=== PATIENT | female | born 1985 | race Caucasian/White ===

== ENCOUNTER 2017-06-27 14:31 | Outpatient (CLI) | payer OTHER ==
--- NOTE | 2017-06-27 15:04 | RAD ---
LEFT FOOT 3 VIEWS: Date: 06/27/17 HISTORY: Injury, left foot pain. FINDINGS/IMPRESSION: No acute fracture or dislocation is identified. There are plantar and posterior calcaneal spurs. POS: [facility]
== END 2017-06-27 14:32 | disposition home or self-care (01) ==
LOC: MADRAD 14:31
PROVIDERS: ATTEND Family Medicine
DX: M79.672 Pain in left foot (principal); M77.32 Calcaneal spur, left foot

== ENCOUNTER 2018-06-17 09:13 | Emergency (ER) | payer OTHER ==
[2018-06-17] MEDS ORDERED: Ibuprofen 800 MG TAB ONE (09:54)
--- NOTE | 2018-06-17 10:03 | RAD ---
RIGHT HAND THREE VIEWS: History: Fall with hand pain. FINDINGS: There are no signs of fracture or dislocation. IMPRESSION: Negative right hand. POS: [facility]
--- NOTE | 2018-06-17 10:03 | RAD ---
FOUR VIEWS RIGHT WRIST: Comparison: None. History: Right wrist pain after fall. FINDINGS: Four views of the right wrist shows no evidence of acute fracture or dislocation. Mild soft tissue sw elling is seen. No degenerative changes are present. IMPRESSION: Unremarkable exam. POS: [facility]
== END 2018-06-17 10:19 | disposition home or self-care (01) ==
LOC: MADERS 09:13
DX: S63.501A Unspecified sprain of right wrist, initial encounter (principal); F41.9 Anxiety disorder, unspecified; W19.XXXA Unspecified fall, initial encounter

== ENCOUNTER 2018-09-05 07:47 | Emergency (ER) | payer OTHER ==
[2018-09-05] MEDS ORDERED: Morphine 10 MG/ML VIAL ONE (08:26)
--- NOTE | 2018-09-05 08:28 | RAD ---
EXAM: Chest Two Views 09/05/2018 8:25 AM HISTORY: Fall with left-sided rib pain COMPARISON: None. FINDINGS: Heart: Normal in size and contour. Pulmonary vessels: Normal. Costophrenic angles: Clear. Lungs: No confluent pneumonia, overt edema, pleural effusion, or other acute process. Pneumothorax: None. Osseous structures:Intact. Additional findings: None. IMPRESSION: No significant acute intrathoracic disease. If there is concern for left-sided rib fracture, left rib radiographic series is recommended.
== END 2018-09-05 08:42 | disposition home or self-care (01) ==
LOC: MADERS 07:47
DX: R07.81 Pleurodynia (principal); G44.209 Tension-type headache, unspecified, not intractable; I10 Essential (primary) hypertension; F41.9 Anxiety disorder, unspecified
CPT/HCPCS: 71046; 96372; J2270

== ENCOUNTER 2019-06-16 08:24 | Emergency (ER) | payer OTHER | END 2019-06-16 09:00 | disposition home or self-care (01) | LOC: MADERS 08:24 | DX: J20.9 Acute bronchitis, unspecified (principal); I10 Essential (primary) hypertension; F41.9 Anxiety disorder, unspecified | CPT/HCPCS: 99283 ==

== ENCOUNTER 2020-02-23 18:53 | Emergency (ER) | payer OTHER ==
--- NOTE | 2020-02-23 19:44 | RAD ---
LEFT FOOT THREE VIEWS: History: Dropped a frozen bottle of water on top of foot two days ago. Persistent pain. FINDINGS: Calcaneal spurs are present. There are no signs of fracture or dislocation. IMPRESSION: No evidence of fracture. POS: OFF
== END 2020-02-23 19:54 | disposition home or self-care (01) ==
LOC: MADERS 18:53
DX: S90.32XA Contusion of left foot, initial encounter (principal); I10 Essential (primary) hypertension; F41.9 Anxiety disorder, unspecified; W20.8XXA Other cause of strike by thrown, projected or falling object, initial encounter

== ENCOUNTER 2020-07-05 19:48 | Emergency (ER) | payer OTHER ==
[2020-07-06 15:53] LABS: SARS-CoV-2 PCR by NAA Not Detected (NotDetected)
== END 2020-07-05 20:37 | disposition home or self-care (01) ==
LOC: MADERS 19:48
DX: R50.9 Fever, unspecified (principal); R05 Cough; R00.0 Tachycardia, unspecified; Z20.822 Contact with and (suspected) exposure to COVID-19
CPT/HCPCS: 87635; 99283; U0003; U0005

== ENCOUNTER 2020-12-12 18:32 | Emergency (ER) | payer OTHER ==
[2020-12-12] MEDS ORDERED: Boostrix 0.5 ML (Tdap) VIAL ONE (18:43)
== END 2020-12-12 19:00 | disposition home or self-care (01) ==
LOC: MADERS 18:32
DX: S61.411A Laceration without foreign body of right hand, initial encounter (principal); W45.8XXA Other foreign body or object entering through skin, initial encounter
CPT/HCPCS: 90471; 90715

== ENCOUNTER 2021-09-30 16:05 | Emergency (ER) | payer OTHER | END 2021-09-30 16:42 | disposition home or self-care (01) | LOC: MADERS 16:05 | DX: H61.22 Impacted cerumen, left ear (principal) | CPT/HCPCS: 99282 ==

== ENCOUNTER 2022-06-07 18:52 | Emergency (ER) | payer OTHER ==
[2022-06-07] MEDS ORDERED: Ibuprofen 800 MG TAB ONE (19:43)
[2022-06-07 19:44] LABS: Pregnancy Test - Urine (BHCG) Negative (Negative); Pregu Control Background? CLEAR/WHITE (CLR/WHITE); Pregu Control Bar Appear? YES (CONTROL BAR)
== END 2022-06-07 20:56 | disposition home or self-care (01) ==
LOC: MADERS 18:52
DX: S93.602A Unspecified sprain of left foot, initial encounter (principal); I10 Essential (primary) hypertension; W01.0XXA Fall on same level from slipping, tripping and stumbling without subsequent striking against object, initial encounter
CPT/HCPCS: 81025

== ENCOUNTER 2022-12-09 17:07 | Emergency (ER) | payer OTHER | END 2022-12-09 19:08 | disposition home or self-care (01) | LOC: MADERS 17:07 | DX: S50.01XA Contusion of right elbow, initial encounter (principal); I10 Essential (primary) hypertension; E66.9 Obesity, unspecified; W01.0XXA Fall on same level from slipping, tripping and stumbling without subsequent striking against object, initial encounter ==

== ENCOUNTER 2023-04-08 14:54 | Emergency (ER) | payer OTHER, SELFPAY | END 2023-04-08 15:44 | disposition home or self-care (01) | LOC: MADERS 14:54 | DX: H60.501 Unspecified acute noninfective otitis externa, right ear (principal); H73.91 Unspecified disorder of tympanic membrane, right ear; I10 Essential (primary) hypertension; Z79.899 Other long term (current) drug therapy | CPT/HCPCS: 99282 ==

== ENCOUNTER 2023-08-09 08:18 | Emergency (ER) | payer SELFPAY ==
[2023-08-09 09:00] LABS: Bilirubin Negative (Negative); Blood, Urine Negative (Negative); Clarity Clear (Clear); Glucose, Urine (Dipstick) Negative (Negative); Ketone, Urine Negative (Negative); Leukocyte Negative (Negative); Nitrite Negative (Negative); Protein, Urine (Dipstick) Negative (Neg-Trace); Specific Gravity, Urine 1.015 (1.005-1.030); Urobilinogen 0.2 mg/dL (Less than 2)
[2023-08-09 09:03] LABS: Pregnancy Test - Urine (BHCG) Negative (Negative); Pregu Control Background? CLEAR/WHITE (CLR/WHITE); Pregu Control Bar Appear? YES (CONTROL BAR); Specific Gravity 1.015 (1.002-1.036)
[2023-08-09 09:05] LABS: Bacteria/HPF Rare-Few HPF (None Seen); CAUTI Indications for Culture Dysuria,urgency,freq; RBC/HPF 0-3 HPF (0-3); Squamous Epithelial 0-3 HPF (0-3); WBC/HPF 0-3 HPF (0-3)
[2023-08-09 09:07] LABS: Urine Culture Reflex No No
[2023-08-09] MEDS ORDERED: Orphenadrine Citrate 60 MG/2 ML VIAL ONE (09:09)
== END 2023-08-09 10:05 | disposition home or self-care (01) ==
LOC: MADERS 08:18
DX: M54.50 Low back pain, unspecified (principal); I10 Essential (primary) hypertension; Z79.899 Other long term (current) drug therapy
CPT/HCPCS: 72100; 72220; 81001; 81025; 96372; J2360

== ENCOUNTER 2024-01-13 20:42 | Emergency (ER) | payer SELFPAY ==
[2024-01-13] MEDS ORDERED: Ketorolac Tromethamine 30 MG (1 mL) VIAL ONE (21:33)
== END 2024-01-13 21:58 | disposition home or self-care (01) ==
LOC: MADERS 20:42
DX: M54.31 Sciatica, right side (principal); I10 Essential (primary) hypertension
CPT/HCPCS: 96372; 99283; J1885